=== PATIENT | female | born 1990 | race African-American/Black ===

== ENCOUNTER 2023-05-21 19:07 | Emergency (ER) | payer OTHER ==
[~2023-05-21] VITALS: Ht 165.1 cm; Wt 85.0 kg
[~2023-05-21 19:07] MED LIST: PREN-27 PO
[2023-05-21 19:28] LABS: APPEARANCE,URINE CLEAR (CLEAR); BILIRUBIN,URINE NEGATIVE (NEGATIVE); COLOR,URINE COLORLESS (YELLOW); GLUCOSE, URINE (UA) NEGATIVE (NEGATIVE); KETONES,URINE NEGATIVE (NEGATIVE); LEUKOCYTE ESTERASE ,URINE NEGATIVE (NEGATIVE); NITRATE,URINE NEGATIVE (NEGATIVE); OCCULT BLOOD,URINE NEGATIVE (NEGATIVE); PROTEIN,URINE NEGATIVE (NEGATIVE); SPECIFIC GRAVITIY, URINE 1.007 (1.003-1.030); UROBILINOGEN,URINE <=1.0 mg/dL (<=1.0)
[2023-05-21 19:31] LABS: GLUCOMETER DEV NAME(LOC) ERT.5; GLUCOSE,POINT OF CARE 84 MG/DL (70-110)
[2023-05-21] MEDS: SODIUM CHLORIDE 0.9% 1,000 ML IV ONE (21:53)
[2023-05-21] MEDS: KETOROLAC TROMETHAMINE 30 MG/ML VIAL IVP ONE (21:54)
[2023-05-21] MEDS: ONDANSETRON HCL 4 MG/2 ML VIAL IVP ONE (21:54)
[2023-05-21 22:02] LABS: BASOPHILS % (AUTO) 0.5 % (0.0-2.0); EOSINOPHILS % (AUTO) 4.9 % (1.0-6.0); HEMOGLOBIN 11.5 g/dL (12.0-16.0); LYMPHOCYTES # (AUTO) 2.6 K/uL (1.0-4.8); LYMPHOCYTES % (AUTO) 30.2 % (22.0-44.0); MEAN CORPUSCULAR HEMOGLOBIN 28.5 pg (26.0-34.0); MEAN CORPUSCULAR HGB CONC 32.9 G/dL (31.0-37.0); MEAN CORPUSCULAR VOLUME 87 fL (80-100); MONOCYTES # (AUTO) 0.6 K/uL (0.1-1.0); MONOCYTES % (AUTO) 7.3 % (2.0-9.0); NEUTROPHILS # (AUTO) 4.9 K/uL (1.8-7.7); NEUTROPHILS % (AUTO) 57.1 % (40.0-70.0); PLATELET COUNT (AUTO) 405 K/uL (150-450); RED BLOOD CELL COUNT(AUTO) 4.04 MIL/uL (4.00-5.20); RED CELL DISTRIBUTION WIDTH 13.9 % (11.5-14.5); WHITE BLOOD COUNT (AUTO) 8.6 K/uL (4.5-11.0)
[2023-05-21 22:11] LABS: ANION GAP 8 mmol/L (8-16); CALCIUM, TOTAL 9.2 mg/dL (8.8-10.5); CARBON DIOXIDE 29 mmol/L (22-29); CHLORIDE 104 mmol/L (98-107); CREATININE 0.59 mg/dL (0.60-1.30); GLOMERULAR FILTR. RATE CALC > 60 mL/min (>60); GLUCOSE,RANDOM 82 mg/dL (70-110); POTASSIUM 3.6 mmol/L (3.5-5.1); SODIUM SERUM 141 mmol/L (136-145); UREA NITROGEN, BLOOD 10 mg/dL (7-18)
[2023-05-21 22:18] LABS: ALANINE AMINOTRANSFERASE 21 U/L (12-78); ALKALINE PHOSPHATASE 62 U/L (46-116); ASPARTATE AMINOTRANSFERASE 11 U/L (15-37); BILIRUBIN,TOTAL 0.2 mg/dL (0.1-1.0); LIPASE 39 U/L (16-77); TOTAL PROTEIN, SERUM 7.7 g/dL (6.4-8.2)
[2023-05-21] MEDS ORDERED: SODIUM CHLORIDE 0.9% 100 ML ONE (22:26)
[2023-05-21] MEDS ORDERED: IOHEXOL 350 MG/ML 100 ML VIAL ONE (22:26)
[2023-05-21] MEDS: FAMOTIDINE 20 MG/2 ML VIAL IVP ONE (22:30)
[2023-05-21] MEDS: MAG HYDROX/ALUMINUM HYD/SIMETH 30 ML SUSPENSION UDCUP PO ONE (22:30)
[2023-05-22] MEDS: MetroNIDAZOLE 250 MG TABLET PO ONE (00:43)
[2023-05-22] MEDS: DOXYCYCLINE HYCLATE 100 MG TABLET PO ONE (00:43)
[2023-05-22] MEDS: CefTRIAXone SODIUM 500 MG in DEXTROSE 5%-WATER 50 ML IV ONE (00:44)
[2023-05-22] MEDS ORDERED: METR500 PO (00:49)
[2023-05-22] MEDS ORDERED: DOXY-354 PO (00:49)
[2023-05-22] MEDS: ACETAMINOPHEN 500 MG TABLET PO ONE (01:10)
[2023-05-22] MEDS: KETOROLAC TROMETHAMINE 15 MG/ML VIAL IVP ONE (01:11)
[2023-05-22] MEDS: METOCLOPRAMIDE HCL 5 MG/ML 2 ML VIAL IVP ONE (01:11)
[2023-05-22] MEDS: DiphenhydrAMINE HCL 50 MG/ML VIAL IVP ONE (01:11)
[2023-05-22] MEDS ORDERED: KETOROLAC TROMETHAMINE 30 MG/ML VIAL IVP ONE (01:15)
[2023-05-22] MEDS: MORPHINE SULFATE 2 MG/ML SYRINGE IVP ONE (01:20)
[2023-05-22 06:27] VITALS: BP 123/71; PULSE 74; RESP 16; TEMP 98.4
== END 2023-05-22 06:29 | disposition home or self-care (01) ==
LOC: EMS 19:07
DX: R10.32 Left lower quadrant pain (principal); F12.90 Cannabis use, unspecified, uncomplicated; Z98.890 Other specified postprocedural states
CPT/HCPCS: 99285; 74177; 96375 ×2; 96361; 80053; 81003; 82962; 83690; 84703; 85025; 36415; 87491; 87591; 96365; J3490; J1885 ×2; J2405; Q9967; J7030; J7050; J0696; J1200; J2765; J2270; J7060